=== PATIENT | female | born 1955 | race Caucasian/White ===

== ENCOUNTER 2018-11-05 15:21 | Outpatient (REF) | payer BC, SELFPAY ==
[2018-11-05 19:17] LABS: HCT 45.2 % (36.0-46.0); HGB 15.3 g/dL (12.0-15.5); Mean Corp. HGB Concentration 33.8 g/dL (32.0-36.0); Mean Corpuscular Hemoglobin 33.1 pg (27.0-33.0); Mean Corpuscular Volume 97.8 fL (80-95); Mean Platelet Volume 10.2 fL (8.0-11.0); Platelet Count 237 x1000/uL (130-400); RBC 4.62 m/cumm (4.00-5.20); RBC Distribution Width 13.9 % (11.7-14.6); White Blood Cell Count 12.57 k/cumm (4.4-10.8)
[2018-11-05 19:54] LABS: Anion Gap 10.5 mmol/L (3-11); BUN 19 mg/dL (7-18); CO2 27.5 mmol/L (21.0-32.0); CREATININE 0.99 mg/dL (0.55-1.02); Calcium 8.9 mg/dL (8.5-10.1); Chloride 100 mmol/L (98-107); Estimated GFR 56.47 (mL/min/1.73m2); Glucose 104 mg/dL (70-100); Potassium 3.8 mmol/L (3.5-5.1); Sodium 138 mmol/L (136-145); TSH 3.28 uIU/mL (0.358-3.74)
== END 2018-11-05 15:41 ==
LOC: NCHCN 15:21
PROVIDERS: PCP Internal Medicine; Visit Provider Internal Medicine
DX: E03.9 Hypothyroidism, unspecified (principal); I10 Essential (primary) hypertension; I48.0 Paroxysmal atrial fibrillation; Z87.891 Personal history of nicotine dependence
CPT/HCPCS: 80048; 85027; 84443

== ENCOUNTER 2020-02-17 19:15 | Outpatient (REF) | payer BC, SELFPAY ==
[2020-02-17 19:37] LABS: HCT 44.2 % (36.0-46.0); HGB 14.6 g/dL (12.0-15.5); Mean Corpuscular Hemoglobin 31.9 pg (27.0-33.0); Mean Corpuscular Volume 96.5 fL (80-95); Mean Platelet Volume 10.4 fL (8.0-11.0); Platelet Count 213 x1000/uL (130-400); RBC 4.58 m/cumm (4.00-5.20); RBC Distribution Width 14.5 % (11.7-14.6)
[2020-02-17 19:55] LABS: Anion Gap 8.6 mmol/L (3-11); BUN 20 mg/dL (7-18); CO2 27.4 mmol/L (21.0-32.0); CREATININE 1.08 mg/dL (0.55-1.02); Calcium 9.1 mg/dL (8.5-10.1); Chloride 97 mmol/L (98-107); Estimated GFR 50.92 (mL/min/1.73m2); Glucose 181 mg/dL (74-106); Potassium 3.7 mmol/L (3.5-5.1); Sodium 133 mmol/L (136-145); TSH 3.36 uIU/mL (0.36-3.74)
== END 2020-02-17 19:35 ==
LOC: NCHCN 19:15
PROVIDERS: PCP Internal Medicine; Visit Provider Internal Medicine
DX: Z53.20 Procedure and treatment not carried out because of patient's decision for unspecified reasons (principal); E03.9 Hypothyroidism, unspecified; I10 Essential (primary) hypertension; Z00.00 Encounter for general adult medical examination without abnormal findings
CPT/HCPCS: 80048; 85027; 84443

== ENCOUNTER 2020-08-21 17:16 | Outpatient (REF) | payer MEDICARE, BC, SELFPAY ==
[2020-08-23 10:35] LABS: COVID-19 RT-PCR Result NEGATIVE (Negative)
== END 2020-08-21 17:36 ==
LOC: NCHCN 17:16
PROVIDERS: PCP Internal Medicine; Visit Provider Internal Medicine
DX: Z20.822 Contact with and (suspected) exposure to COVID-19 (principal)
CPT/HCPCS: U0003

== ENCOUNTER 2021-06-16 16:53 | Outpatient (REF) | payer MEDICARE, BC, SELFPAY ==
[2021-06-16 21:31] LABS: HCT 47.5 % (36.0-46.0); HGB 15.4 g/dL (11.2-15.7); MCH 30.9 pg (27.0-33.0); MCHC 32.4 % (32.0-36.0); MCV 95.4 fL (80-95); MPV 10.6 fL (8.0-11.0); Platelet Count 202 10^3/uL (130-400); RBC 4.98 10^6/uL (3.93-5.22); RDW-SD 49.3 fL; WBC 11.46 10^3/uL (4.4-10.8)
[2021-06-16 22:01] LABS: Anion Gap 11.1 mmol/L (3-11); BUN 29 mg/dL (7-18); CO2 26.9 mmol/L (21.0-32.0); CREATININE 1.2 mg/dL (0.55-1.02); Calcium 8.9 mg/dL (8.5-10.1); Chloride 102 mmol/L (98-107); Estimated GFR 44.81 (mL/min/1.73m2); Glucose 133 mg/dL (74-106); LDL CHOLESTEROL 110 mg/dL (<100); Potassium 4.2 mmol/L (3.5-5.1); Sodium 140 mmol/L (136-145); TSH 3.87 uIU/mL (0.36-3.74)
== END 2021-06-16 16:54 | disposition home or self-care (01) ==
LOC: NCHCN 16:53
PROVIDERS: PCP Internal Medicine; Visit Provider Internal Medicine
DX: N17.9 Acute kidney failure, unspecified (principal)
CPT/HCPCS: 80048; 83721; 85027; 84443

== ENCOUNTER 2022-06-07 13:48 | Outpatient (REF) | payer MEDICARE, BC, SELFPAY ==
[2022-06-07 18:40] LABS: HCT 47.6 % (36.0-46.0); HGB 15.6 g/dL (11.2-15.7); MCH 31.6 pg (27.0-33.0); MCHC 32.8 % (32.0-36.0); MCV 96 fL (80-95); MPV 10.2 fL (8.0-11.0); Platelet Count 222 10^3/uL (130-400); RBC 4.94 10^6/uL (3.93-5.22); RDW-SD 49.7 fL; WBC 9.84 10^3/uL (4.4-10.8)
[2022-06-07 18:59] LABS: ALT 28 U/L (14-59); Anion Gap 10.1 mmol/L (3-11); BUN 19 mg/dL (7-18); CO2 27.9 mmol/L (21.0-32.0); CREATININE 1.3 mg/dL (0.55-1.02); Chloride 98 mmol/L (98-107); Creatine Kinase 53 U/L (26-192); Estimated GFR 44.79 (mL/min/1.73m2); Glucose 202 mg/dL (74-106); Sodium 136 mmol/L (136-145); TSH 3.72 uIU/mL (0.36-3.74)
[2022-06-07 19:17] LABS: Calculated LDL 60 mg/dL (<100); Cholesterol 173 mg/dL (<200); HDL Cholesterol 36 mg/dL (40-60); Triglyceride 386 mg/dL (<150)
== END 2022-06-07 13:49 | disposition home or self-care (01) ==
LOC: NCHCN 13:48
PROVIDERS: PCP Internal Medicine; Visit Provider Internal Medicine
DX: E11.9 Type 2 diabetes mellitus without complications (principal); E03.9 Hypothyroidism, unspecified; H35.30 Unspecified macular degeneration
CPT/HCPCS: 80048; 80061; 82550; 85027; 84443; 84460

== ENCOUNTER 2023-06-07 14:50 | Outpatient (REF) | payer MEDICARE, BC, SELFPAY ==
[2023-06-07 20:14] LABS: Abs Immature Grans 0.05 10^3/uL (0.0-0.06); Absolute Basophil Count 0.13 10^3/uL (0.0-0.2); Absolute Lymphocyte Count 2.73 10^3/uL (1.2-3.4); Absolute Monocyte Count 0.52 10^3/uL (0.1-0.8); Basophils % 1.1; Eosinophils % 2.5; HCT 47.6 % (36.0-46.0); HGB 15.7 g/dL (11.2-15.7); Immature Grans % 0.4; Lymphocytes % 23.1; MCH 31.2 pg (27.0-33.0); MCV 94 fL (80-95); MPV 9.6 fL (8.0-11.0); Monocytes % 4.4; Neutrophils % 68.5; Platelet Count 242 10^3/uL (130-400); RBC 5.04 10^6/uL (3.93-5.22); RDW 13.8 % (11.7-14.6); RDW-SD 48.1 fL; WBC 11.83 10^3/uL (4.4-10.8)
[2023-06-07 20:44] LABS: BUN 16 mg/dL (7-18); CREATININE 1.3 mg/dL (0.55-1.02); Calcium 9.2 mg/dL (8.5-10.1); Chloride 98 mmol/L (98-107); Estimated GFR 44.51 (mL/min/1.73m2); Glucose 207 mg/dL (74-106); Potassium 3.5 mmol/L (3.5-5.1); Sodium 136 mmol/L (136-145); TSH 3.65 uIU/mL (0.36-3.74)
[2023-06-07 20:50] LABS: Hemoglobin A1C 6.9 % (<5.7)
[2023-06-07 21:00] LABS: Digoxin 0.64 ng/mL (0.90-2.00)
== END 2023-06-07 14:51 | disposition home or self-care (01) ==
LOC: NCHCN 14:50
PROVIDERS: PCP Internal Medicine; Visit Provider Internal Medicine
DX: E03.9 Hypothyroidism, unspecified (principal); E11.9 Type 2 diabetes mellitus without complications; I48.0 Paroxysmal atrial fibrillation
CPT/HCPCS: 80048; 80162; 83036; 84443; 85025

== ENCOUNTER 2024-06-17 14:55 | Outpatient (REF) | payer MEDICARE, BC, SELFPAY ==
[2024-06-17 19:21] LABS: HCT 46.2 % (36.0-46.0); HGB 15.2 g/dL (11.2-15.7); MCH 32.7 pg (27.0-33.0); MCHC 32.9 % (32.0-36.0); MCV 99 fL (80-95); MPV 9.9 fL (8.0-11.0); Platelet Count 232 10^3/uL (130-400); RBC 4.65 10^6/uL (3.93-5.22); RDW 14.7 % (11.7-14.6); RDW-SD 53.9 fL; WBC 9.39 10^3/uL (4.4-10.8)
[2024-06-17 19:41] LABS: Anion Gap 11.2 mmol/L (3-11); BUN 13 mg/dL (7-18); CO2 26.8 mmol/L (21.0-32.0); CREATININE 1.1 mg/dL (0.55-1.02); Calcium 9.2 mg/dL (8.5-10.1); Calculated LDL 56 mg/dL (<100); Chloride 98 mmol/L (98-107); Cholesterol 162 mg/dL (<200); Digoxin 0.76 ng/mL (0.90-2.00); Estimated GFR 54.06 (mL/min/1.73m2); Glucose 137 mg/dL (74-106); HDL Cholesterol 35 mg/dL (40-60); Potassium 4.1 mmol/L (3.5-5.1); Sodium 136 mmol/L (136-145); TSH 5.28 uIU/mL (0.36-3.74); Triglyceride 357 mg/dL (<150)
== END 2024-06-17 14:56 | disposition home or self-care (01) ==
LOC: NCHCN 14:55
PROVIDERS: PCP Internal Medicine; Visit Provider Internal Medicine
DX: E78.5 Hyperlipidemia, unspecified (principal); N17.9 Acute kidney failure, unspecified
CPT/HCPCS: 80048; 80061; 85027; 80162; 84443

== ENCOUNTER 2024-12-16 17:05 | Outpatient (REF) | payer MEDICARE, BC, SELFPAY ==
[2024-12-16 21:34] LABS: Anion Gap 12.9 mmol/L (3-11); BUN 14 mg/dL (7-18); CO2 26.1 mmol/L (21.0-32.0); Calcium 9.7 mg/dL (8.5-10.1); Chloride 98 mmol/L (98-107); Estimated GFR 60.61 (mL/min/1.73m2); Glucose 150 mg/dL (74-106); Magnesium 2.2 mg/dL (1.8-2.4); PHOSPHORUS 3.7 mg/dL (2.6-4.7); Potassium 3.4 mmol/L (3.5-5.1); Sodium 137 mmol/L (136-145)
== END 2024-12-16 17:06 | disposition home or self-care (01) ==
LOC: NCHCN 17:05
PROVIDERS: PCP Internal Medicine; Visit Provider Internal Medicine
DX: M81.0 Age-related osteoporosis without current pathological fracture (principal)
CPT/HCPCS: 80048; 83735; 84100

== ENCOUNTER 2025-04-01 15:48 | Outpatient (REF) | payer MEDICARE, BC, SELFPAY ==
[2025-04-01 20:05] LABS: Anion Gap 10.6 mmol/L (3-11); BUN 15 mg/dL (7-18); CO2 27.4 mmol/L (21.0-32.0); Calcium 8.9 mg/dL (8.5-10.1); Chloride 97 mmol/L (98-107); Digoxin 0.97 ng/mL (0.90-2.00); Estimated GFR 48.70 (mL/min/1.73m2); Glucose 190 mg/dL (74-106); Potassium 4.3 mmol/L (3.5-5.1); Sodium 135 mmol/L (136-145); TSH 2.16 uIU/mL (0.36-3.74)
[2025-04-01 20:27] LABS: NT-proBNP 2649 pg/mL (<300)
== END 2025-04-01 15:49 | disposition home or self-care (01) ==
LOC: NCHCN 15:48
PROVIDERS: PCP Internal Medicine; Visit Provider Internal Medicine
DX: I50.9 Heart failure, unspecified (principal); E11.9 Type 2 diabetes mellitus without complications
CPT/HCPCS: 80048; 80162; 83880; 84443